=== PATIENT | female | born 1955 | race Caucasian/White ===

== ENCOUNTER 2018-02-22 09:05 | Emergency (ER) | payer BC ==
[~2018-02-22] VITALS: Ht 172.7 cm; Wt 81.8 kg
[~2018-02-22 09:05] MED LIST: ALPRAZOLAM1 MG PO; BENTYL20 MG PO; CENTRUM SILVER1 EAC3 PO; HYDROCHLOROTH12.5 M1 PO; HYDROCODON-ACE1 EAC4 PO; HYDROCODON-ACE1 EAC5 PO; LEXAPRO20 MG PO; LOPRESSOR25 MG PO; LOPRESSOR50 MG PO; MICROZIDE12.5 M1 PO; MIRTAZAPINE15 MG PO; PROMETHAZINE HC25 M1 PO; REMERON30 M2 PO; XANAX1 MG PO; ZANTAC150 MG PO
[2018-02-22 11:09] LABS: BASOPHIL (%) 0.6 % (0-1); BASOPHIL COUNT 0.1 K/uL (0-0.1); EOSINOPHIL (%) 0.4 % (0-5); HEMATOCRIT 48.5 % (36.0-46.0); HEMOGLOBIN 16.2 G/DL (11.9-15.5); IMMATURE GRANULOCYTE (%) 0.6 % (0.0-0.7); LYMPHOCYTE (%) 16.9 % (15-42); LYMPHOCYTE COUNT 1.4 K/uL (1.0-2.8); MCH 31.2 PG (29.0-34.0); MCHC 33.4 G/DL (30.0-36.0); MCV 93.3 FL (83-99); MONOCYTE (%) 4.4 % (3-12); MONOCYTE COUNT 0.4 K/uL (0-0.8); NEUTROPHIL (%) 77.1 % (45-76); NEUTROPHIL COUNT 6.6 K/uL (1.8-6.4); PLATELET COUNT 269 K/uL (156-360); RBC DIS.WIDTH-CV 12.7 % (11.8-14.6); RBC DIS.WIDTH-SD 43.7 % (39-53); WHITE BLOOD COUNT 8.5 K/uL (4.1-10.2)
[2018-02-22 11:21] LABS: ALBUMIN 4.3 g/dL (3.2-4.8); CHLORIDE 106 mEq/L (99-109); POTASSIUM 3.9 mEq/L (3.7-5.4); SODIUM 141 mEq/L (136-147)
[2018-02-22 11:24] LABS: GLUCOSE 108 mg/dL (70-99); TOTAL PROTEIN 8.3 g/dL (6.4-8.3)
[2018-02-22 11:26] LABS: TOTAL BILIRUBIN 0.4 mg/dL (0.0-1.0)
[2018-02-22 11:27] LABS: ALKALINE PHOSPHATASE 134 IU/L (3-129); CREATININE 0.8 mg/dL (0.6-1.3); GFR ESTIMATE (CALCULATED) > 59 mL/min/
[2018-02-22 11:28] LABS: UREA NITROGEN (BUN) 10 mg/dL (9-23)
[2018-02-22 11:29] LABS: AST (GOT) 24 IU/L (2-34)
[2018-02-22 11:30] LABS: ALT (GPT) 18 IU/L (3-49)
[2018-02-22 11:31] LABS: LIPASE 47 U/L (1.0-51.0)
[2018-02-22 13:45] VITALS: BP 147/92
== END 2018-02-22 13:46 | disposition home or self-care (01) ==
LOC: EME 09:05
PROVIDERS: Emergency Medicine
DX: R10.11 Right upper quadrant pain (principal); R19.7 Diarrhea, unspecified; R42 Dizziness and giddiness; R11.0 Nausea; K76.0 Fatty (change of) liver, not elsewhere classified; Z90.49 Acquired absence of other specified parts of digestive tract; Z90.710 Acquired absence of both cervix and uterus; I10 Essential (primary) hypertension; Z86.73 Personal history of transient ischemic attack (TIA), and cerebral infarction without residual deficits; Z88.1 Allergy status to other antibiotic agents; F17.200 Nicotine dependence, unspecified, uncomplicated
CPT/HCPCS: 74177; 80053; 81003; 83690; 85025; 99281; 99284; J2270; J2405; J7030